=== PATIENT | male | born 1980 | race American Indian/Alaskan Native ===

== ENCOUNTER 2017-04-16 08:01 | Emergency (ER) | payer SELFPAY ==
[2017-04-16 08:13] VITALS: BP 138/75
[2017-04-16 08:41] LABS: Bilirubin,Urine NEG (Negative); Blood,Urine NEG (Negative); Ketones,Urine NEG (Negative); Leukocyte Esterase,Urine NEG (Negative); Mucus,Urine 1+ /HPF; Nitrite,Urine NEG (Negative)
== END 2017-04-16 09:45 | disposition left against medical advice (07) ==
LOC: ED 08:01
DX: M54.5 Low back pain (principal); Z53.21 Procedure and treatment not carried out due to patient leaving prior to being seen by health care provider
CPT/HCPCS: 81001

== ENCOUNTER 2017-04-17 09:16 | Emergency (ER) | payer OTHER ==
[2017-04-17] MEDS ORDERED: TORADOL IM ONE (14:20)
--- NOTE | 2017-04-17 14:34 | Emergency Department Report ---
ED ENT HPI - General Chief complaint: Sore Throat Stated complaint: SORE THROAT/FEVER Source: patient Mode of arrival: Ambulatory Limitations: No Limitations - History of Present Illness Initial comments: 37 y/o nontoxic in appearance M presents with a fever, sore throat, right ear pain, and low back pain for the past 2 days. pt states that he has little children around him that have been sick with similar symptoms. He has been taking Dayquil and Excedrin without much relief. He also admits to a cough and nasal congestion. Pt states that he is prone to sinus infections and states that it feels similar. He denies any chest pain, SOB, nausea, or vomiting. 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 He denies any urinary symptoms at this time. NKDA. HESTER complaint: sore throat, other (LBP) -: Gradual (2-3 days) Location: throat Severity: severe Severity scale (0 -10): 8 Quality: constant Consistency: intermittent Improves with: none Associated Symptoms: cough, sore throat, other (LBP) - Related Data Previous Rx's Medication Instructions Recorded Last Taken Type Cyclobenzaprine [Flexeril] 10 mg PO TID PRN #20 tablet 08/30/15 Unknown Rx Ibuprofen [Motrin 800 MG tab] 800 mg PO Q8HR PRN #30 tablet 08/30/15 Unknown Rx Amoxicillin/Potassium Clav 1 each PO BID #14 tablet 04/17/17 Unknown Rx [Augmentin 875-125 Tablet] Cyclobenzaprine [Flexeril] 10 mg PO QHS PRN #20 tablet 04/17/17 Unknown Rx Diclofenac Sodium 50 mg PO BID PRN #20 tablet. 04/17/17 Unknown Rx Fluticasone [Flonase] 1 spray NS QDAY PRN #1 bottle 04/17/17 Unknown Rx Allergies Allergy/AdvReac Type Severity Reaction Status Date / Time No Known Allergies Allergy Verified 08/30/15 09:32 ED Dental HPI - General Chief complaint: Sore Throat Stated complaint: SORE THROAT/FEVER Source: patient Mode of arrival: Ambulatory Limitations: No Limitations - History of Present Illness complaint: sore throat Dental Associated Symptons: Yes: Sore Throat - Related Data Previous Rx's Medication Instructions Recorded Last Taken Type Cyclobenzaprine [Flexeril] 10 mg PO TID PRN #20 tablet 08/30/15 Unknown Rx Ibuprofen [Motrin 800 MG tab] 800 mg PO Q8HR PRN #30 tablet 08/30/15 Unknown Rx Amoxicillin/Potassium Clav 1 each PO BID #14 tablet 04/17/17 Unknown Rx [Augmentin 875-125 Tablet] Cyclobenzaprine [Flexeril] 10 mg PO QHS PRN #20 tablet 04/17/17 Unknown Rx Diclofenac Sodium 50 mg PO BID PRN #20 tablet. 04/17/17 Unknown Rx Fluticasone [Flonase] 1 spray NS QDAY PRN #1 bottle 04/17/17 Unknown Rx Allergies Allergy/AdvReac Type Severity Reaction Status Date / Time No Known Allergies Allergy Verified 08/30/15 09:32 ED Review of Systems ROS: Stated complaint: SORE THROAT/FEVER Other details as noted in HPI Constitutional: fever. denies: chills Eyes: denies: eye pain, eye discharge, vision change ENT: ear pain, throat pain, congestion Respiratory: cough Cardiovascular: denies: chest pain, palpitations Gastrointestinal: denies: abdominal pain, nausea, diarrhea Genitourinary: denies: urgency, dysuria Musculoskeletal: back pain (LBP) Skin: denies: rash, lesions Neurological: denies: headache, weakness, paresthesias Psychiatric: denies: anxiety, depression Hematological/Lymphatic: denies: easy bleeding, easy bruising ED Past Medical Hx - Past Medical History Previous Medical History?: No - Surgical History Past Surgical History?: No - Social History Smoking Status: Current Every Day Smoker Substance Use Type: Alcohol, Marijuana, Other - Medications Home Medications: Home Medications Medication Instructions Recorded Confirmed Last Taken Type Cyclobenzaprine [Flexeril] 10 mg PO TID PRN #20 tablet 08/30/15 Unknown Rx Ibuprofen [Motrin 800 MG tab] 800 mg PO Q8HR PRN #30 tablet 08/30/15 Unknown Rx Amoxicillin/Potassium Clav 1 each PO BID #14 tablet 04/17/17 Unknown Rx [Augmentin 875-125 Tablet] Cyclobenzaprine [Flexeril] 10 mg PO QHS PRN #20 tablet 04/17/17 Unknown Rx Diclofenac Sodium 50 mg PO BID PRN #20 tablet. 04/17/17 Unknown Rx Fluticasone [Flonase] 1 spray NS QDAY PRN #1 bottle 04/17/17 Unknown Rx ED Physical Exam - General Limitations: No Limitations General appearance: alert, in no apparent distress - Head Head exam: Present: other (frontal and maxillary TTP) - Eye Eye exam: Present: normal appearance, EOMI - ENT ENT exam: Present: other (Rigth TM injected and pain at the tragus, b/l mild clear congestion noted in nostrils, no evidnece of pharnygitis, mild PND noted, no peritonsillar abscess/exudates, airway is patent) - Neck Neck exam: Present: normal inspection, full ROM, other (no evidence of menigitis - able to flex neck without pain or difficulty) - Respiratory Respiratory exam: Present: normal lung sounds bilaterally. Absent: respiratory distress - Cardiovascular Cardiovascular Exam: Present: regular rate, normal rhythm. Absent: systolic murmur, diastolic murmur, rubs, gallop - Extremities Exam Extremities exam: Present: normal inspection - Back Exam Back exam: Present: full ROM (able to bend and touch toes), paraspinal tenderness (at the lumbar region, no spinal TTP at the cervical, thoracic, or lumbar regions), other (no CVAT b/l or flank pain) - Neurological Exam Neurological exam: Present: alert, oriented X3, normal gait - Expanded Neurological Exam Expanded Patient oriented to: Present: person, place, time Speech: Present: fluid speech Best Eye Response (Reynolds): (4) open spontaneously Best Motor Response (Reynolds): (6) obeys commands Best Verbal Response (Reynolds): (5) oriented Reynolds Total: 15 - Psychiatric Psychiatric exam: Present: normal affect, normal mood - Skin Skin exam: Present: warm, dry, intact, normal color. Absent: rash ED Course Vital Signs 04/17/17 04/17/17 10:23 16:52 Temperature 99.7 F H 98.7 F Pulse Rate 88 66 Respiratory 20 18 Rate Blood Pressure 122/84 Blood Pressure 129/83 [Left] O2 Sat by Pulse 97 98 Oximetry ED Medical Decision Making - Medical Decision Making Patient denied CXR at this time. A flu and strep swabs were conducted and were negative. R TM was injected and patient appeared to have a sinus infection on examination. i have treated him with toradol 30 mg here in the ED with relief of the pain and discharged him home with Augmentin and Flonase. As for the LBP , pt was seen yesterday and a UA was conducted and was negative, due to the mechanism of him working on ladder going up and down I feel that this is a musclar origin I have given him Flexeril and Diclofenac for home with a referral to orthopedics. Pt was discahrged in stable condition, alert and oriented, speaking in full sentences. Critical care attestation.: If time is entered above; I have spent that time in minutes in the direct care of this critically ill patient, excluding procedure time. ED Disposition Clinical Impression: Sore throat Acute sinusitis Qualifiers: Sinusitis location: other Recurrence: recurrent Qualified Code(s): J01.81 - Other acute recurrent sinusitis Low back pain Qualifiers: Chronicity: acute Back pain laterality: bilateral Sciatica presence: without sciatica Qualified Code(s): M54.5 - Low back pain Otitis media Qualifiers: Otitis media type: unspecified Chronicity: acute Qualified Code(s): H66.90 - Otitis media, unspecified, unspecified ear Disposition: TO HOME OR SELFCARE Is pt being admited?: No Does the pt Need Aspirin: No Condition: Stable Instructions: Cyclobenzaprine (By mouth), Amoxicillin/Clavulanate Potassium ( By mouth), Sinusitis (ED), Otitis Media (ED) Additional Instructions: please do warm salt water gargles. Please complete your full course of antibiotic, with some probiotics. Please be advised that muscle relaxant may cause drowsiness do not take with driving or operating heavy machinery. Please follow-up with PCP within 1 week. ENT and orthopedic referrals provided for you today, follow-up within 3-5 days. Please return to the ER immeidately if your presenting symptoms progress or worsen. Prescriptions: Cyclobenzaprine [Flexeril] 10 mg PO QHS PRN #20 tablet PRN Reason: MUSCLE SPASM Amoxicillin/Potassium Clav [Augmentin 875-125 Tablet] 1 each PO BID #14 tablet Diclofenac Sodium 50 mg PO BID PRN #20 tablet.dr PRN Reason: BACK PAIN Fluticasone [Flonase] 1 spray NS QDAY PRN #1 bottle PRN Reason: NASAL CONGESTION Referrals: PRIMARY CAREMD [Primary Care Provider] - 3-5 Days DARLINE OGDEN MD [Staff Physician] - 3-5 Days JOSE MORIN MD [Staff Physician] - 3-5 Days [facility] [Outside] - 3-5 Days [facility] [Outside] - 3-5 Days Forms: Accompanied Note, Work/School Release Form(ED)
[2017-04-17 16:53] VITALS: BP 129/83
== END 2017-04-17 16:54 | disposition home or self-care (01) ==
LOC: ED 09:16
DX: J02.9 Acute pharyngitis, unspecified (principal); J01.10 Acute frontal sinusitis, unspecified; J01.00 Acute maxillary sinusitis, unspecified; M54.5 Low back pain; H66.91 Otitis media, unspecified, right ear; F17.200 Nicotine dependence, unspecified, uncomplicated; F12.10 Cannabis abuse, uncomplicated
CPT/HCPCS: 87116; 87400; 87430; 96372; 99282; J1885

== ENCOUNTER 2017-09-11 14:23 | Emergency (ER) | payer MEDICAID, SELFPAY ==
[2017-09-11 14:58] VITALS: BP 100/70
== END 2017-09-11 19:46 | disposition left against medical advice (07) ==
LOC: EDBD → ED 14:23
DX: S91.319A Laceration without foreign body, unspecified foot, initial encounter (principal); Z53.21 Procedure and treatment not carried out due to patient leaving prior to being seen by health care provider; X58.XXXA Exposure to other specified factors, initial encounter; Y93.89 Activity, other specified; Y92.89 Other specified places as the place of occurrence of the external cause; Y99.8 Other external cause status